=== PATIENT | male | born 2005 | race Caucasian/White ===

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

== ENCOUNTER 2025-10-13 14:26 | Emergency (ER) | payer OTHER, SELFPAY ==
[2025-10-13 14:38] VITALS: BP 133/86; PULSE 86; RESP 18; TEMP 36.4; O2SAT 100
--- NOTE | 2025-10-13 15:23 | ED.SKABFB ---
HPI - Skin/Abscess/Foreign Bdy General Chief complaint: Skin/Abscess/Foreign Body Stated complaint: Ingrown hair under arm he thinks Time Seen by Provider: 10/13/25 15:23 Source: patient Mode of arrival: ambulatory Limitations: no limitations History of Present Illness HPI narrative: 20 y/o male presented for c/o left under arm abscess worsening x1 week, Endorses redness, pain, and swelling to the site. Denies active drainage. Has not applied anything to the site. no deodorant x2 days. Pt admits he has shaved the site and it started as a small pimple. Related Data Allergies Allergy/AdvReac Type Severity Reaction Status Date / Time No Known Allergies Allergy Verified 10/13/25 15:08 Review of Systems Review of Systems: CONSTITUTIONAL: Denies body aches, fever, chills, or sweats. ENT: Denies rhinorrhea, congestion CARDIOVASCULAR: Denies chest pain, palpitations, or edema. RESPIRATORY: Denies cough or dyspnea. GASTROINTESTINAL: Denies abdominal pain, nausea, vomiting, or diarrhea. SKIN: reports left axilla abscess MUSCULOSKELETAL: Denies back pain, joint pain, or myalgia. ON LICENSE OF [facility] Past Medical History Medical History Hyperhidrosis Mononucleosis Spring 2022 Surgical History Surgical History H/O lateral meniscus repair of left knee Social History Social History Smoking status: Never smoker Comments At time of signature, I have reviewed and agree with nursing past medical, surgical, social and family history unless otherwise noted. Please see nursing chart for further information. There is no relevant family history pertinent to the presenting complaint Exam Narrative: GENERAL: Well-appearing HEAD: Normocephalic, atraumatic. EYES: conjunctivae clear, and EOMI. ENT: Mucous membranes moist. Oropharynx without edema, erythema or lesions. NECK: Supple. No lymphadenopathy CHEST: Clear to auscultation. HEART: Regular rate and rhythm. SKIN: Warm, dry. left axilla with approx 4cm diameter erythematous fluctuant abscess, no active drainage, tender, moderate swelling NEURO: Alert and oriented x3. Course Course Level of Care: Express Care Visit Vital Signs Vital signs: Vital Signs Temperature 97.6 F 10/13/25 14:38 Pulse Rate 86 10/13/25 14:38 Respiratory Rate 18 10/13/25 14:38 Blood Pressure 133/86 10/13/25 14:38 Pulse Oximetry 100 10/13/25 14:38 Temperature 97.6 F 10/13/25 14:38 Pulse Rate 86 10/13/25 14:38 Respiratory Rate 18 10/13/25 14:38 Blood Pressure 133/86 10/13/25 14:38 Pulse Oximetry 100 10/13/25 14:38 Procedures Abscess I/D left axilla: Date of Incision: 10/13/25 Local Anesthetic: lidocaine 1% and with epi Amount of anesthesia used (mL): 3 Technique: incised with #11 blade and probed loculations Irrigation: Yes Packing used?: plain I&D Results: Pus and Blood Abcess I&D Additional Comments: The procedure and its alternatives were reviewed with patient. Risks were reviewed with patient including infection and damage to nearby structures. Patient provided verbal informed consent. The patient was positioned appropriately. Local anesthesia achieved. Single straight Incision made to center of most fluctuant area. Moderate amount of thick purulent discharge expelled with manual pressure. Wound irrigated and probed for loculations. Pt tolerated the procedure well, no complications. Dressing applied per RN. MDM MDM Narrative Medical decision making narrative: Discussed physical exam findings; pt tolerated I&D of left axilla abscess. Rx doxy sent. Pt to remove packing 24 hours. Advised supportive measures and signs/symptoms to go to the ER. Pt is appropriate for outpt treatment and f/u. Differential Diagnosis Differential Diagnosis: abscess, cellulitis, folliculitis, dermatitis Discharge Plan Discharge Clinical Impression: Abscess of skin or subcutaneous tissue Patient Disposition: Home Condition: Stable Instructions: Antibiotic Form, Abscess (ED) Additional Instructions: You had an abscess drained today. You may shower and Cleanse with warm soapy water Warm compresses at least 4 times a day to the site to help expel any additional drainage. Keep your wound covered while draining Take antibiotic as directed Tylenol and ibuprofen every 8 hours for pain as needed Follow up with your primary care physician in 2-3 days for a wound check. Go to the Emergency Department immediately if you develop any of the following symptoms: Fevers, Increased redness, pain, or swelling around where your abscess was, generalized weakness or vomiting or any other concerns Patient Language: Urdu Prescriptions: New doxycycline hyclate 100 mg tablet 100 mg PO BID 7 Days Qty: 14 0RF Follow-up/Referrals: PHYSICIAN,OCEAN EXPORT COORDINATOR [Primary Care Provider, Internal Medicine]
== END 2025-10-13 16:14 | disposition home or self-care (01) ==
PROVIDERS: Emergency Provider Nurse Practitioner Family
DX: L02.412 Cutaneous abscess of left axilla (principal)
CPT/HCPCS: 10061; 99213; G0463; J2004